=== PATIENT | female | born 1960 | race Hispanic/Latino ===

== ENCOUNTER 2017-08-01 16:05 | Emergency (ER) | payer BC ==
[~2017-08-01] VITALS: Ht 152.4 cm; Wt 62.2 kg
[~2017-08-01 16:05] MED LIST: AMARYL2 MG PO; ASPIRIN 81 LOW81 MG PO; AUGMENTIN875TAB OR; CLOPIDOGREL75 MG PO; GLYBURID MCR1.5 MG PO; GLYBURIDE2.5 MG PO; GLYBURIDE5 MG PO; HYDROCHLORO25 MG/TAB PO; LEVOTHYROXIN100 MCG PO; LEVOTHYROXIN125 MCG PO; LISINOP/HCTZ1 TA2 PO; LISINOPRIL20 MG PO; LORTAB 5/3255 MG PO; LORTAB5 PO; METFORMIN500 MG PO; NAPROSYN375 MG PO; NO CURRENT MEDS; NORVASC PO; PERCOCET 5/325M1 TAB OR; UNKNOWN BP MED; ZOFRAN ODT4 MG SL
[2017-08-01 16:50] LABS: HEMOGLOBIN 12.4 g/dl (12.0-16.0); IMMATURE GRANULOCYTES 0.2 % (0.0-1.0); MEAN CELL VOLUME 94.1 fL CALC (80.0-100.0); MEAN CORPUSCULAR HGB 33.3 pG CALC (26.0-32.0); MEAN CORPUSCULAR HGB CONC 35.4 g/L CALC (32.0-36.0); NEUT# 2.9 thou/uL (2.00-7.15); RED BLOOD COUNT 3.72 mill/uL (4.20-5.60); RED CELL DISTRI WIDTH 11.9 % (11.5-15.5)
[2017-08-01 16:51] LABS: URINE BILIRUBIN - DIPSTICK NEGATIVE (NEGATIVE); URINE BLOOD DIPSTICK NEGATIVE (NEGATIVE); URINE COLOR YELLOW; URINE GLUCOSE - DIPSTICK NEGATIVE (NEGATIVE); URINE KETONE NEGATIVE (NEGATIVE); URINE LEUK ESTERASE NEGATIVE (NEGATIVE); URINE NITRITE - DIPSTICK NEGATIVE (Negative); URINE PH 6.5 (4.5-8.0); URINE PROTEIN - DIPSTICK NEGATIVE (NEG-TRACE)
[2017-08-01 16:56] LABS: ANION GAP 19 (6-22 (CALC)); BUN 4 mg/dL (7-17); BUN/CREATININE RATIO 11 (12-20 (CALC)); CARBON DIOXIDE 24 mmol/l (22-30); CHLORIDE 93 mmol/l (95-108); CREATININE 0.4 mg/dL (0.5-1.0); GFR > 60 ML/MIN (>=60 (CALC)); GFR FOR AFR.AMER. > 60 ML/MIN (>=60 (CALC)); SODIUM 132 mmol/l (137-146)
[2017-08-01 16:57] LABS: INTERNATIONAL NORMALIZED RATIO 1.1 RATIO (0.7-1.3); PROTHROMBIN TIME 12.5 SECONDS (9.0-12.5)
[2017-08-01 17:06] LABS: URINE CLARITY CLEAR
[2017-08-01 17:41] LABS: ALKALINE PHOSPHATASE 169 u/l (38-126); BILIRUBIN, TOTAL 1.6 mg/dL (0.0-1.4); SGPT/ALT 88 u/l (9-52)
[2017-08-01 17:42] LABS: ALBUMIN 4.7 g/dL (3.2-5.0); SGOT/AST 196 u/l (14-36); TOTAL PROTEIN 9.4 g/dL (6.3-8.2)
[2017-08-01 18:09] VITALS: BP 158/75
== END 2017-08-01 18:09 | disposition home or self-care (01) | DRG 813 ==
LOC: ED 16:05
PROVIDERS: Family Medicine
DX: D69.6 Thrombocytopenia, unspecified (principal); R23.3 Spontaneous ecchymoses; R74.0 Nonspecific elevation of levels of transaminase and lactic acid dehydrogenase [LDH]; R22.33 Localized swelling, mass and lump, upper limb, bilateral; E11.9 Type 2 diabetes mellitus without complications; I10 Essential (primary) hypertension; F10.10 Alcohol abuse, uncomplicated

== ENCOUNTER 2018-04-18 17:40 | Emergency (ER) | payer BC ==
[~2018-04-18] VITALS: Ht 152.4 cm; Wt 70.0 kg
[~2018-04-18 17:40] MED LIST changes: +GLIMEPIRIDE2 MG PO; +HYDROCHLOROT12.5 M1 PO; +LISINOPRIL40 MG PO; +LOPRESSOR25 M1 PO; +METFORMIN HCL1000 MG PO
[2018-04-18 19:00] LABS: IMMATURE GRANULOCYTES 0.6 % (0.0-5.0); MEAN CORPUSCULAR HGB 25.7 pG CALC (26.0-32.0); MEAN CORPUSCULAR HGB CONC 31.1 g/L CALC (32.0-36.0); NEUT# 6.14 thou/uL (2.00-7.15); RED BLOOD COUNT 2.02 mill/uL (4.20-5.60); RED CELL DISTRI WIDTH 16.8 % (11.5-15.5)
[2018-04-18 19:06] LABS: HEMOGLOBIN 5.2 g/dl (12.0-16.0); MEAN CELL VOLUME 82.7 fL CALC (80.0-100.0)
[2018-04-18 19:07] LABS: HEMATOCRIT 16.7 % (37.0-47.0)
[2018-04-18 19:13] LABS: ALKALINE PHOSPHATASE 114 u/l (38-126); BILIRUBIN, TOTAL 0.6 mg/dL (0.0-1.4); BUN 7 mg/dL (7-17); BUN/CREATININE RATIO 17 (12-20 (CALC)); CARBON DIOXIDE 23 mmol/l (22-30); CHLORIDE 90 mmol/l (95-108); CREATININE 0.4 mg/dL (0.5-1.0); GFR > 60 ML/MIN (>=60 (CALC)); GFR FOR AFR.AMER. > 60 ML/MIN (>=60 (CALC)); LIPASE 281 u/l (23-300); POTASSIUM 3.5 mmol/l (3.5-5.1)
[2018-04-18 19:17] LABS: ALBUMIN 3.4 g/dL (3.2-5.0); ANION GAP 16 (6-22 (CALC)); SGOT/AST 38 u/l (14-36); SODIUM 125 mmol/l (137-146); TOTAL PROTEIN 6.5 g/dL (6.3-8.2)
[2018-04-18 20:50] VITALS: BP 134/71
[2018-04-18 21:21] LABS: URINE BILIRUBIN - DIPSTICK NEGATIVE (NEGATIVE); URINE BLOOD DIPSTICK NEGATIVE (NEGATIVE); URINE COLOR YELLOW; URINE GLUCOSE - DIPSTICK >=1000 mg/dL (NEGATIVE); URINE KETONE NEGATIVE (NEGATIVE); URINE LEUK ESTERASE NEGATIVE (NEGATIVE); URINE NITRITE - DIPSTICK NEGATIVE (Negative); URINE PROTEIN - DIPSTICK NEGATIVE (NEG-TRACE)
== END 2018-04-18 20:50 | disposition short-term general hospital (02) | DRG 379 ==
LOC: ED 17:40
PROVIDERS: Family Medicine
DX: K92.0 Hematemesis (principal); E11.9 Type 2 diabetes mellitus without complications; I10 Essential (primary) hypertension
CPT/HCPCS: Q9967